=== PATIENT | female | born 1990 | race Caucasian/White ===

== ENCOUNTER 2016-08-16 01:24 | Emergency (ER) | payer OTHER ==
[~2016-08-16] VITALS: Ht 160 cm; Wt 56.7 kg
--- NOTE | 2016-08-16 01:32 | ED PSYCHIATRIC COMPLAINT ---
History of Present Illness General Chief Complaint: Psychiatric Related Complaint Stated Complaint: BIBA +SI W/ PLAN TO JUMP OFF BRIDGE Source: patient, friend, police Exam Limitations: no limitations Vital Signs & Intake/Output Vital Signs & Intake/Output Vital Signs Date Time Temp Pulse Resp B/P B/P Pulse O2 O2 Flow FiO2 Mean Ox Delivery Rate 08/16 1017 97.8 68 18 98/52 99 08/16 0624 95/52 08/16 0619 97.4 99 Room Air 08/16 0219 97.2 86 16 103/51 99 Room Air Room Air Triage Note: TRIAGE: BIBA +SI W/ PLAN TO JUMP OFF BRIDGE, PATIENT IS ON PD PAPER. PATIENT IRRITABLE THOUGH COOPERATIVE. PATIENT WANDED BY SECURITY AND CHANGING INTO SCRUBS/ PROVIDING URINE SPECIMEN. SITTER REMAINS W/ PATIENT. Triage Nurses Notes Reviewed? yes Onset: Gradual Duration: hour(s): Timing: single episode today Severity: moderate Associated Symptoms: anxiety, suicidal ideation HPI: 25-year-old woman history of depression, history of prior psychiatric admission, family history of suicide (her father), presents with depression, increased anxiety, and had an attempt where she tried to jump over a guard rail in the company of her friends. She states she was drinking tonight. She states that she had a, "tough" therapy session today. She denies other drugs, homicidality, hallucinations. (LUCERO YOUNGER,EVON Santos) Allergies Coded Allergies: No Known Allergies (08/16/16) (JORGE LUIS YOUNGER,MIKO Foster) Past History Travel History Traveled to [place] past 21 day No Medical History Any Pertinent Medical History? see below for history Psychiatric: depression Surgical History Surgical History: unobtainable Family History Hx Contributory? No (LUCERO YOUNGER,EVON Santos) Review of Systems Review of Systems Constitutional: Reports: no symptoms. EENTM: Reports: no symptoms. Respiratory: Reports: no symptoms. Cardiovascular: Reports: no symptoms. GI: Reports: no symptoms. Genitourinary: Reports: no symptoms. Musculoskeletal: Reports: no symptoms. Skin: Reports: no symptoms. Neurological/Psychological: Reports: no symptoms. Hematologic/Endocrine: Reports: no symptoms. Immunologic/Allergic: Reports: no symptoms. All Other Systems: Reviewed and Negative (LUCERO YOUNGER,EVON Santos) Physical Exam Physical Exam General Appearance: well developed/nourished, mild distress Head: atraumatic Eyes: Bilateral: normal appearance. Ears, Nose, Throat: normal pharynx, normal ENT inspection, hearing grossly normal Neck: normal inspection, supple Respiratory: normal breath sounds Cardiovascular: regular rate/rhythm Gastrointestinal: soft, non-tender Extremities: normal range of motion Neurological/Psychiatric: no motor/sensory deficits, awake, alert, calm, oriented x 3 Appearance/Memory/Insight: appropriate appearance, appropriate insight Behavoir/Eye Contact/Speech: cooperative Thoughts/Hallucinations: no apparent hallucination Skin: intact, normal color, warm/dry SAD PERSONS SAD PERSONS Response Value Depression/Hopelessness? yes 2 Previous Attempts/Psych Care yes 1 Excessive Ethanol/Drug Use? yes 1 Rational Thinking Loss? yes 2 Single//? yes 1 Total 7 SAD PERSONS Done? yes (LUCERO YOUNGER,EVON Santos) Progress Differential Diagnosis: depression versus anxiety versus bipolar versus personality disorder versus other Plan of Care: Orders Procedure Date/time Status Regular Diet 08/16 B Active Continuous Observation Monitor 08/16 0740 Active URINE DRUG SCREEN FOR ER ONLY 08/16 132 Complete HUMAN BETA HCG SCREEN 08/16 132 Complete ETHANOL 08/16 132 Complete COMPREHENSIVE METABOLIC PANEL 08/16 132 Complete CBC WITHOUT DIFFERENTIAL 08/16 132 Complete ED CRISIS PSYCH CONSULT 08/16 132 Active Laboratory Tests 08/16/16 0200: Anion Gap 16, Estimated GFR > 60, BUN/Creatinine Ratio 22.9, Glucose 88, Calcium 9.2, Total Bilirubin 0.3, AST 21, ALT 23, Alkaline Phosphatase 46, Total Protein 6.5, Albumin 4.0, Globulin 2.5, Albumin/Globulin Ratio 1.6, Total Beta HCG NEGATIVE, CBC w Diff NO MAN DIFF REQ, RBC 4.27, MCV 92.3, MCH 31.6 H, RDW 12.6, MPV 7.5, Gran % 57.1, Lymphocytes % 31.9, Monocytes % 6.8, Eosinophils % 3.5, Basophils % 0.7, Absolute Granulocytes 3.6, Absolute Lymphocytes 2.0, Absolute Monocytes 0.4, Absolute Eosinophils 0.2, Absolute Basophils 0, PUBS MCHC 34.3, Serum Alcohol 89.0 08/16/16 0150: Urine Opiates Screen < 100.00, Methadone Screen 47, Barbiturate Screen < 60, Ur Phencyclidine Scrn < 6.00, Amphetamines Screen < 100, U Benzodiazepines Scrn < 85, Urine Cocaine Screen < 50, Urine Cannabis Screen < 5.00 Hand-Off Endorsed To: MIKO KANG MD Endorsed Time: 0700 Pending: consult, labs (LUCERO YOUNGER,EVON Santos) Comments: Patient has been seen and evaluated by supervisory civil engineer. Patient denies any current suicidal ideations. Patient is in therapy. Patient promises to call for any concerns. Mom feels comfortable taking her home. Patient will be discharged. (MIKO KANG MD) Departure Departure Condition: Stable Clinical Impression Primary Impression: Depression Secondary Impressions: Alcohol intoxication Departure Forms: Customer Survey General Discharge Information (LUCERO YOUNGER,EVON Santos) Departure Disposition: HOME OR SELF CARE Additional Instructions: Follow-up with her therapist. Return for any concerns. Please call 211 or return to the emergency department for any thoughts of harming herself or anybody else. (MIKO KANG MD)
[2016-08-16 02:23] LABS: ABSOLUTE BASOPHIL COUNT 0 /CUMM (0.0-0.2); ABSOLUTE EOSINOPHIL COUNT 0.2 /CUMM (0.0-0.7); ABSOLUTE GRANULOCYTE CT 3.6 /CUMM (1.4-6.5); ABSOLUTE MONOCYTE COUNT 0.4 /CUMM (0.10-0.60); BASOPHIL % 0.7 % (0.0-2.0); EOSINOPHIL % 3.5 % (0-5); GRANULOCYTE % 57.1 % (42.2-75.2); HEMATOCRIT 39.4 % (37-47); MEAN CORPUSCULAR HGB 31.6 PG (27.0-31.0); MEAN CORPUSCULAR HGB CONC 34.3 G/DL (33.0-37.0); MEAN CORPUSCULAR VOLUME 92.3 FL (81.0-99.0); MEAN PLATELET VOLUME 7.5 FL (7.4-10.4); PLATELET COUNT 214 /CUMM (130-400); RBC DISTRIBUTION WIDTH 12.6 % (11.5-14.5); RED BLOOD CELL CT 4.27 /CUMM (4.20-5.40); WHITE BLOOD CELL COUNT 6.3 /CUMM (4.8-10.8)
--- NOTE | 2016-08-16 10:12 | ED PSY CRISIS COLLATERAL NOTE ---
Collateral Note Collateral Note Family/Inform/Carolee Contacts: telephone call to mother Shonda Eid. Mother did not have alot to elaborate on. She stated that her daughter was in therapy and she felt this was helping, but she aknowledged that yesterday was hard for her daugher, resulting in her visit to the ED. Mother stated she had no problems with her daughter returning home and the plan to be that her daughter will return to her therapist for her scheduled appointment on 08/21 and her psychiatrist sometime within the next two weeks.
[2016-08-16 10:17] VITALS: BP 98/52
--- NOTE | 2016-08-16 10:28 | ED PSYCH CRISIS CONSULTATION ---
Crisis Consult Basic Assessment Date of Consult: 08/16/16 Responsible Person/Accompanied By: self, friend and cousin Insurance Authorization: Insurance #1: Insurance name: [employer] Phone number: Policy number: [id number] Group number: [id number] Authorization number: ED Provider: Patient's ED Provider: EVON BARKER MD Primary Care Physician: Patient's PCP: PATIENT HAS NO PRIMARY CARE DR PCP's Phone Number: Current Psychiatrist: Dr. Del Rosario in [place] Chief Complaint: Psychiatric Related Complaint Patient's Quote: "I got triggered last night and it made me feel hopeless about life" Present Illness: Pt. reported that she had struggled with depression and suicidal thoughts in high school but these thoughts had gone away as she reached young adult rodriguez. Her father committed suicide in September 2015 and she stated this incident caused her suicidal thoughts to return "but bigger". Pt. is in private therapy with a public health social worker named Sheila, who client reported also works at [facility]. She reported going to a psychiatrist, Dr. Del Rosario for medication management and seeing him once every two weeks. She is prescribed 0.5 mg Klonopin PRN and 20 mg Lexapro. She reported taking her klonpin as needed several times this week due to increased anxiety about life. She stated that yesterday she had a difficulty session with her therapist in which she showed pictures of her father's service, bringing up memories and sadness. She stated she then went out with friends to a restaurant/bar and had a discussion with one friend about his own suicidal thoughts. She stated she became hopeless about life after her friend told her that "he didn't care about her father and this didn't change what he was going through". This feeling of hopelessness and ending it all resulted in her visit to the ED. She was present in the ED with her cousin Toma and an off duty, but uniformed chief administrative officer from the [facility], also named Toma. She stated she felt she had the support of her family and friends and did not feel suicidal this morning. She agreed with the plan to be released today and to see her therapist for her scheduled appointment on 08/21 and her psychiatrist for her scheduled appointment sometime in the next two weeks. Pt. denied substance use, she stated she drank 3-4 beers last night but she had "gotten carried away" and usually drank 1-2 times a week, 1 drink each occasion. Patient's Address: [address] [place] [id number] Other Phone Number: Who Do You Live With? Mother Family/Informants Interviewed: Mother was interviewed, stated she had no problems with daughter returning home or concerns. she agreed with the plan for her daughter to attend her therapy and psychiatry sessions this week. mom stated she felt weekly treatment had been helping her daughter. Allergies - Coded Allergies: No Known Allergies (08/16/16) Laboratory Results: Laboratory Tests 08/16/16 0200: Anion Gap 16, Estimated GFR > 60, BUN/Creatinine Ratio 22.9, Glucose 88, Calcium 9.2, Total Bilirubin 0.3, AST 21, ALT 23, Alkaline Phosphatase 46, Total Protein 6.5, Albumin 4.0, Globulin 2.5, Albumin/Globulin Ratio 1.6, Total Beta HCG NEGATIVE, CBC w Diff NO MAN DIFF REQ, RBC 4.27, MCV 92.3, MCH 31.6 H, RDW 12.6, MPV 7.5, Gran % 57.1, Lymphocytes % 31.9, Monocytes % 6.8, Eosinophils % 3.5, Basophils % 0.7, Absolute Granulocytes 3.6, Absolute Lymphocytes 2.0, Absolute Monocytes 0.4, Absolute Eosinophils 0.2, Absolute Basophils 0, PUBS MCHC 34.3, Serum Alcohol 89.0 08/16/16 0150: Urine Opiates Screen < 100.00, Methadone Screen 47, Barbiturate Screen < 60, Ur Phencyclidine Scrn < 6.00, Amphetamines Screen < 100, U Benzodiazepines Scrn < 85, Urine Cocaine Screen < 50, Urine Cannabis Screen < 5.00 Past History Past Medical History Psychiatric: depression Past Surgical History Surgical History: unobtainable Psychosocial History Strengths/Capabilities: pt. is young and is asking for help in weekly therapy sessions. Pt. is able to articulate herself and her experiences well. Psychiatric Treatment History Psych Treatment Psychiatric Treatment Yes Inpatient Treatment Yes Outpatient Treatment Yes Location of Treatment inpatient, private practice therapy Reason for Treatment depression, suicidal ideation Dates of Treatment May 2016, inpatient, outpaient ongoing Diagnosis by History: Depression Substance Use/Abuse History Drug Use/Abuse Substances Used/Abused Yes Substance Used/Abused Alcohol First Use age 17 Last Used last night How much used/taken 3-4 beers How often 1x per week, usually only one drink Substance Abuse Treatment Substance Abuse Treatment Past Substance Abuse [place] No Inpatient Treatment No Current Mental Status Mental Status Orientation: Person, Place, Situation Affect: Appropriate Speech: WNL Neuro-vegetative: WNL Appearance Appearance- Dress/Hygiene: good hygiene, with slightly messy hair, 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 Moderately 3 Disturbing dreams of stressful experience from past? Moderately 3 Suddenly acting/feeling as if reliving stressful experience? Moderately 3 Physical reactions when reminded of stressful experience? Moderately 3 Avoid thinking/talking of stressful exp. to avoid reactions? Moderately 3 Avoid activities/situations that remind of stressful exp.? Moderately 3 Trouble remembering important parts of stressful experience? A little bit 2 Loss of interest in things that you used to enjoy? Moderately 3 Feeling distant or cut off from other people? Moderately 3 Feeling emotionally numb/unable to love those close to you? Quite a bit 4 Feeling as if your future will somehow be cut short? Moderately 3 Trouble falling or staying asleep? A little bit 2 Feeling irritable or having angry outbursts? A little bit 2 Having difficulty concentrating? A little bit 2 Being super alert or watchful on guard? A little bit 2 Total 41 DSM5/PS Stressors/Medical Prob Diagnosis' (DSM 5, Stressors, Medical): F33.1 Major Depressive Disorder, Moderate Current GAF: 45 Departure Disposition Psych Medical Clearance Date: 08/16/16 Medically Cleared at: 0945 Time Started: 944 Time Ended: 1005 Psychiatrist Consulted: Dony Reddy MD Date Disposition Established: 08/16/16 Time Disposition Established: 1045 Plan for Disposition - Modality: Outpatient Facility: Patient to Arrange Follow-up Appt Date: 08/21/16 Contact: Sheila Rationale for Disposition: Pt. not suicidal, was triggered last night and felt hopeless but feels better now, has alot of strengths and support from family and friends, has a job and life aspirations. Referrals PATIENT HAS NO PRIMARY CARE DR (PCP/Family)
== END 2016-08-16 11:20 ==
LOC: ERH 01:24
PROVIDERS: Pediatrics
DX: F32.9 Major depressive disorder, single episode, unspecified (principal); F10.129 Alcohol abuse with intoxication, unspecified
CPT/HCPCS: 80307; G0463; G0480; J3490